=== PATIENT | male | born 1965 | race Caucasian/White ===

== ENCOUNTER → 2024-05-27 06:48 | Day surgery (SDC) | payer BC, SELFPAY | LOC: GI 06:48 | PROVIDERS: ATTENDING PHYSICIAN Internal Medicine Gastroenterology | DX: R13.10 Dysphagia, unspecified (principal); Q39.9 Congenital malformation of esophagus, unspecified; K22.89 Other specified disease of esophagus; K29.50 Unspecified chronic gastritis without bleeding; K21.9 Gastro-esophageal reflux disease without esophagitis | CPT/HCPCS: 43249; 88305; 88342 ==

== ENCOUNTER → 2024-06-10 12:00 | Outpatient (REF) | payer BC, SELFPAY | LOC: DHSLP 12:00 | PROVIDERS: ATTENDING PHYSICIAN Internal Medicine; FAMILY PHYSICIAN Internal Medicine | DX: G47.33 Obstructive sleep apnea (adult) (pediatric) (principal) | CPT/HCPCS: 95800 ==

== ENCOUNTER → 2024-07-30 10:19 | Outpatient (REF) | payer BC, SELFPAY | LOC: RAD 10:19 | PROVIDERS: ATTENDING PHYSICIAN Surgery; FAMILY PHYSICIAN Internal Medicine | DX: K22.0 Achalasia of cardia (principal) | CPT/HCPCS: 74246 ==

== ENCOUNTER → 2024-10-22 07:29 | Outpatient (REF) | payer BC, SELFPAY | LOC: DHCBC/DCA 07:29 | PROVIDERS: ATTENDING PHYSICIAN Internal Medicine Cardiovascular Disease; FAMILY PHYSICIAN Surgery | DX: Z76.89 Persons encountering health services in other specified circumstances (principal) | CPT/HCPCS: 78452; 93017; A9500 ==

== ENCOUNTER → 2024-10-24 08:40 | Outpatient (REF) | payer BC, SELFPAY | LOC: RCS 08:40 | PROVIDERS: ATTENDING PHYSICIAN Internal Medicine Cardiovascular Disease; FAMILY PHYSICIAN Internal Medicine | DX: R06.09 Other forms of dyspnea (principal); R94.31 Abnormal electrocardiogram [ECG] [EKG]; Z76.89 Persons encountering health services in other specified circumstances | CPT/HCPCS: 93306 ==

== ENCOUNTER 2024-10-25 10:24 | Inpatient (IN) | payer BC, SELFPAY ==
[2024-10-07 10:38] LABS: Hematocrit 38.9 % (39.0-52.0); Hemoglobin 13.4 g/dL (13.0-18.0); Mean Corp Hgb Conc. 34.4 g/dL (33.0-37.0); Mean Corpuscular Hgb 33.7 pg (27.0-31.0); Mean Corpuscular Volume 97.7 fL (80.0-94.0); Mean Platelet Volume 11.5 fL (7.4-10.4); Platelet Count 144 10^3/uL (130-400); Red Blood Cell Count 3.98 10^6/uL (4.70-6.10); Red Cell Dist. Width 12.8 % (11.5-14.5)
[2024-10-07 11:09] LABS: Blood Urea Nitrogen 17 mg/dl (9-20); Calcium 9.8 mg/dl (8.4-10.2); Carbon Dioxide 29 mmol/L (22-30); Chloride 102 mmol/L (98-107); Glucose 95 mg/dl (70-99); Potassium 4.9 mmol/L (3.5-5.1); Sodium 143 mmol/L (135-145); eGFR > 60.00
[2024-10-07 13:44] VITALS: BMI 26.4
[2024-10-25] VITALS (12 sets, daily range): BP systolic 106–127; BP diastolic 60–80; BMI 26.4
[2024-10-25] MEDS: TYLENOL 1000 MG PO (11:07)
[2024-10-25] MEDS: NORMOSOL-R/PLASMALYTE-A 1000 IV ×2 (11:20→18:32)
--- NOTE | 2024-10-25 15:18 | W.IMMPOSTOP ---
Surgical Immed Post Op Note
-
Primary Surgeon: Scooter
Assisting Surgeon: MIKA Thompson
Pre-op Diagnosis: Achalasia
Post-op Diagnosis: Achalasia
Procedure Performed: Laparoscopic Heller myotomy, Toupet fundoplication, intra-operative EGD
Anesthesia Type: General
Specimen / Cultures: None
Estimated Blood Loss: 23 cc
Complications: None
Operative Findings:
1. Dilated and tortuous esophagus, retained food debris, tight GEJ with 'pop' while traversing
2. Esophageal mobilization ~ 6 cm, Heller myotomy 6 cm onto esophagus and 2 cm onto stomach
3. Repeat EGD with intact mucosa (leak test neg) and easily traversed the GEJ
4. Posterior crural closure with 0 silk x 1
5. Loose, floppy 2 cm Toupet fundoplication
6. Repeat EGD able to easily traverse repair
[2024-10-25] MEDS: DILAUDID 0.5 MG IV ×3 (15:39→16:07)
[2024-10-25] MEDS: OFIRMEV 100 IV ×2 (16:29→22:23)
[2024-10-26 03:13] VITALS: BP 105/65
[2024-10-26] MEDS: OFIRMEV 100 IV ×2 (04:17→11:55)
[2024-10-26] MEDS: NORMOSOL-R/PLASMALYTE-A 1000 IV ×3 (04:18→21:45)
[2024-10-26 06:40] LABS: Hematocrit 31.6 % (39.0-52.0); Hemoglobin 11.2 g/dL (13.0-18.0); Mean Corp Hgb Conc. 35.4 g/dL (33.0-37.0); Mean Corpuscular Hgb 34.4 pg (27.0-31.0); Mean Corpuscular Volume 96.9 fL (80.0-94.0); Mean Platelet Volume 11.4 fL (7.4-10.4); Platelet Count 120 10^3/uL (130-400); Red Blood Cell Count 3.26 10^6/uL (4.70-6.10); Red Cell Dist. Width 12.8 % (11.5-14.5); White Blood Cell Count 12.9 10^3/uL (4.8-10.8)
[2024-10-26 07:00] VITALS: BP 117/65
[2024-10-26 07:08] LABS: Blood Urea Nitrogen 13 mg/dl (9-20); Calcium 8.7 mg/dl (8.4-10.2); Carbon Dioxide 27 mmol/L (22-30); Chloride 99 mmol/L (98-107); Estimated Creatinine Clearance 88 ml/min; Glucose 116 mg/dl (70-99); Potassium 4.8 mmol/L (3.5-5.1); Sodium 136 mmol/L (135-145); eGFR > 60.00
[2024-10-26] MEDS: NICODERM TRANSDERMAL 7 MG TRANSDERM (08:07)
[2024-10-26] MEDS: DILAUDID 0.5 MG IV ×2 (08:09→13:00)
--- NOTE | 2024-10-26 11:02 | W.PN.GS2 ---
Today's Communication / Plan
-
Trial of clears
Assessment / Plan
-
59 yo male with a h/o achalasia now POD #1 Laparoscopic Heller myotomy, Toupet fundoplication and intraop EGD
Afebrile, VSS
Labs stable post operatively
Mild acute anemia secondary to expected operative blood losses and hemodilution
--Continue IV analgesics
--Trial of clears
--Nicotine patch, 7mg
--Resume oral meds once tolerating PO intake
--Continue IVF
--OOB/Ambulate
--Lovenox sq for VTE ppx
Subjective Data
-
Date of Service: October 26, 2024
Patient seen and examined at bedside with Dr. Lai. Notes he is quite hungry. Denies n/v. Some soreness at incisions but manageable.
Objective Data
-
Intake and Output
10/25/24 10/26/24 10/27/24
06:59 06:59 06:59
Intake Total 1600 / 1600
Output Total 1100 / 1100
Balance 500 / 500
Intake:
IV fluids (Total) 1400 / 1400
Normsol 100 / 100
ofirmev 100 / 100
IV piggybacks 200 / 200
Output:
Urine, Voided 1100 / 1100
Vital Signs
Temp Pulse Resp BP Pulse Ox
98.4 F 65 16 117/65 97
10/26/24 07:00 10/26/24 07:00 10/26/24 07:00 10/26/24 07:00 10/26/24 08:06
Lab Results
10/26/24 05:15
10/26/24 05:15
Calcium 8.7 mg/dl (8.4-10.2) 10/26/24 05:15
Physical Exam
-
NAD
ABD soft, expected incisional tenderness, ND
Incisions well approximated with intact glue
[2024-10-26 11:25] VITALS: BP 114/72
--- NOTE | 2024-10-26 14:46 | CM ---
Met with pt at bedside
Pt reports he lives in a 1 story home with his ; 3 steps to enter
Independent , active, unemployed
DME - single [employer]
SNF/HH - no past hx
Has ride at discharge
PCP - Roderick Wang
Pharm - [facility]
CM consult - VN
Discussed with pt - unsure at this time. CM will check again with pt closer to discharge
Plan - anticipate home no needs vs with VN
[2024-10-26 15:00] VITALS: BP 127/73
[2024-10-26 16:50] VITALS: BMI 26.4
[2024-10-26] MEDS: ROXICODONE ORAL SOLUTION 5 MG PO ×2 (17:31→21:45)
[2024-10-26] MEDS: LOVENOX 40 MG SC (17:31)
[2024-10-26 23:00] VITALS: BP 151/84
[2024-10-27] MEDS: DILAUDID 0.5 MG IV ×2 (00:50→09:08)
[2024-10-27 05:16] LABS: Hematocrit 32.3 % (39.0-52.0); Hemoglobin 11.1 g/dL (13.0-18.0); Mean Corp Hgb Conc. 34.4 g/dL (33.0-37.0); Mean Corpuscular Hgb 33.5 pg (27.0-31.0); Mean Corpuscular Volume 97.6 fL (80.0-94.0); Mean Platelet Volume 10.9 fL (7.4-10.4); Platelet Count 129 10^3/uL (130-400); Red Blood Cell Count 3.31 10^6/uL (4.70-6.10); White Blood Cell Count 11.4 10^3/uL (4.8-10.8)
[2024-10-27 05:38] LABS: Blood Urea Nitrogen 12 mg/dl (9-20); Calcium 8.7 mg/dl (8.4-10.2); Carbon Dioxide 29 mmol/L (22-30); Chloride 102 mmol/L (98-107); Estimated Creatinine Clearance 99 ml/min; Glucose 96 mg/dl (70-99); Potassium 4.5 mmol/L (3.5-5.1); Sodium 140 mmol/L (135-145); eGFR > 60.00
[2024-10-27] MEDS: ROXICODONE ORAL SOLUTION 5 MG PO ×2 (06:14→12:16)
[2024-10-27 07:00] VITALS: BP 130/81
[2024-10-27] MEDS: NORMOSOL-R/PLASMALYTE-A 1000 IV ×2 (07:45→18:39)
[2024-10-27] MEDS: NICODERM TRANSDERMAL 7 MG TRANSDERM (07:46)
--- NOTE | 2024-10-27 11:36 | W.PN.GS2 ---
Today's Communication / Plan
-
Full liquids
Assessment / Plan
-
59 yo male with a h/o achalasia now POD #2 Laparoscopic Heller myotomy, Toupet fundoplication and intraop EGD
Afebrile, VSS
Labs stable post operatively
Reactive leukocytosis present, trending down
H/H stable
--Continue PO and IV analgesics prn
--Advance to FLD
--Nicotine patch, 7mg
--Resume PO Valsartan
--Continue IVF
--OOB/Ambulate
--Lovenox sq for VTE ppx
Anticipate d/c tomorrow if tolerating diet and pain well controlled on oral meds
Subjective Data
-
Date of Service: October 27, 2024
Patient seen and examined at bedside with Dr. Lai. Denies n/v. Tolerating clears. Incisional pain and pain to left side and into shoulders, managed well with current regimen. Passing flatus.
Objective Data
-
Intake and Output
10/26/24 10/27/24 10/28/24
06:59 06:59 06:59
Intake Total 1600 / 1600 3280 / 3280
Output Total 1100 / 1100 1735 / 1735
Balance 500 / 500 1545 / 1545
Intake:
Oral fluids 780 / 780
IV fluids (Total) 1400 / 1400 2400 / 2400
Normsol 100 / 100
ofirmev 100 / 100
IV piggybacks 200 / 200 100 / 100
Output:
Urine, Voided 1100 / 1100 1735 / 1735
Other:
Number of approximated MODERATE 2
amounts of urine
Vital Signs
Temp Pulse Resp BP Pulse Ox
98.2 F 71 14 130/81 96
10/27/24 07:00 10/27/24 07:00 10/27/24 07:00 10/27/24 07:00 10/27/24 11:29
Lab Results
10/27/24 04:10
10/27/24 04:10
Calcium 8.7 mg/dl (8.4-10.2) 10/27/24 04:10
Physical Exam
-
NAD
ABD soft, expected incisional tenderness, ND
Incisions well approximated with intact glue
[2024-10-27] MEDS: DIOVAN 80 MG PO (12:13)
[2024-10-27] MEDS: TORADOL 10 MG IV (14:56)
[2024-10-27 15:00] VITALS: BP 130/80
[2024-10-27] MEDS: LOVENOX 40 MG SC (17:41)
[2024-10-27] MEDS: COLACE LIQUID 100 MG PO (20:16)
[2024-10-27 23:05] VITALS: BP 141/83
[2024-10-28 00:07] VITALS: BP 141/83
[2024-10-28 06:50] VITALS: BP 134/88
[2024-10-28] MEDS: NICODERM TRANSDERMAL 7 MG TRANSDERM (08:45)
[2024-10-28] MEDS: DIOVAN 80 MG PO (08:45)
[2024-10-28] MEDS: COLACE LIQUID 100 MG PO (08:45)
--- NOTE | 2024-10-28 09:09 | W.PN.GS2 ---
Today's Communication / Plan
-
dispo planning
Assessment / Plan
-
59 yo male with a h/o achalasia now POD #3 Laparoscopic Heller myotomy, Toupet fundoplication and intraop EGD
Afebrile, VSS
--Continue analgesics prn
--Colace for bowel regimen
--Continue on FLD for few weeks
--Nicotine patch, 7mg
--On home dose of PO Valsartan
--D/C IVF
--OOB/Ambulate
--Lovenox sq for VTE ppx
d/c to home
Subjective Data
-
Date of Service: October 28, 2024
Patient seen and examined at bedside with Dr. Up. Pain much improved today more in his shoulders and not in his abdomen any longer. Tolerating liquids.
Objective Data
-
Intake and Output
10/27/24 10/28/24 10/29/24
06:59 06:59 06:59
Intake Total 3280 / 3280 4140 / 4140
Output Total 1735 / 1735
Balance 1545 / 1545 4140 / 4140
Intake:
Oral fluids 780 / 780 2040 / 2040
IV fluids (Total) 2400 / 2400 2100 / 2100
IV piggybacks 100 / 100
Output:
Urine, Voided 1735 / 1735
Other:
Number of approximated MODERATE 2 2
amounts of urine
Number of approximated LARGE 4
amounts of urine
Vital Signs
Temp Pulse Resp BP Pulse Ox
97.6 F 79 16 134/88 96
10/28/24 06:50 10/28/24 06:50 10/28/24 06:50 10/28/24 06:50 10/28/24 06:50
Lab Results
10/27/24 04:10
10/27/24 04:10
Calcium 8.7 mg/dl (8.4-10.2) 10/27/24 04:10
Physical Exam
-
NAD
ABD soft, expected incisional tenderness, ND
Incisions well approximated with intact glue
--- NOTE | 2024-10-28 09:51 | W.DCSUMMARY ---
Discharge Summary
Discharge Data
Date of Admission: 10/25/24
Date of Discharge: 10/28/24
-
Pending Results: No
Hospital Course
Mr Estrada is a 59 yo male with a history of achalasia who presented for surgical management with Heller myotomy, Toupet fundoplication and intra-operative EGD. He tolerated the procedure well and diet was able to be advanced during his course of
stay to full liquids with supplements which was tolerating well and continued upon discharge. Once pain was able to be well managed with oral agents, he was discharged to home with outpatient follow up planned in the coming weeks. He has a smoking
history and nicotine patch was also provided upon discharge.
Discharge Plan
-
Patient Disposition: Home (Routine Discharge)
Discharge Diagnosis/Procedures: Laparoscopic Heller myotomy, Toupet fundoplication and intraop EGD
Condition: Good
Diet: Other diet
Additional Diets: Full liquids with protein supplements, follow the handout you received in your surgeon's office
Activity: No strenuous activity
Additional Activity: Do not lift over 15 lbs for 4-6 weeks
Driving Restrictions: No driving for 24 hours
Bathing Restrictions: OK to Shower
Wound Care: Allow the glue over your incisions to flake off on their own over the next 2-3 weeks. Avoid scrubbing or picking the glue off.
Activity Restrictions/Additional Instructions:
Call your surgeon if you have worsening pain or swallowing, fever >100.5 or nausea with vomiting
A nicotine patch was sent to your pharmacy. Please continue to refrain from smoking.
Instructions: Full liquid diet
Referrals:
Ankit Wang DO [Family Provider] -
Son Helms MD [Active] - in two to three weeks
Additional Discharge Medication Instructions: Take over the counter Tylenol and ibuprofen as needed for pain. You can transition to the pill form of these medications as your swallowing improves.
Prescriptions:
New
oxycodone 5 mg/5 mL Solution
5 mg PO Q4HPRN PRN (Reason: severe pain) Qty: 75 0RF
nicotine 7 mg/24 hr Patch 24 Hour
7 mg transdermal DAILY Qty: 14 0RF
docusate sodium 50 mg/5 mL Liquid
100 mg PO BID Qty: 200 0RF
Rx Instructions:
hold for loose stools
Continued
epinephrine [EpiPen 2-Doc] 0.3 mg/0.3 mL auto-injector
0.3 mg IM Q4H PRN (Reason: anaphylaxis) Qty: 2 0RF
Patient Comments:
never took it
valsartan 80 mg Tablet
80 mg PO DAILY
Discharge Orders:
Discharge Patient (As Directed); Ordered 10/28/24
Ordered By: Yumiko Trujillo
Discharge Date and Time
Print Language: BULGARIAN
--- NOTE | 2024-10-28 10:01 | CM ---
Patient seen at bedside.
IMM n/a
No needs
PLAN: discharge to home, no needs
to transport
[2024-10-28 10:15] VITALS: BP 138/78
== END 2024-10-28 10:44 | disposition home or self-care (01) | DRG 327 ==
LOC: 2 SOUTH 10:24
PROVIDERS: Registered Nurse; ADMITTING PHYSICIAN Surgery; FAMILY PHYSICIAN Internal Medicine
PROC: 0D844ZZ Division of Esophagogastric Junction, Percutaneous Endoscopic Approach (ICD-10-PCS; 2024-10-25)
PROC: 0DV44ZZ Restriction of Esophagogastric Junction, Percutaneous Endoscopic Approach (ICD-10-PCS; 2024-10-25)
DX: K22.0 Achalasia of cardia (principal); D62 Acute posthemorrhagic anemia; F17.200 Nicotine dependence, unspecified, uncomplicated; Z90.49 Acquired absence of other specified parts of digestive tract; Z88.5 Allergy status to narcotic agent
CPT/HCPCS: 36415; 80048; 85027; 93005; C1729